=== PATIENT | male | born 1985 | race African-American/Black ===

== ENCOUNTER → 2017-06-07 | Day surgery (SDC) | payer BC ==
[~2017-06-07] MED LIST: NO MEDICATIONS
--- NOTE | ~2017-06-07 | OR ---
Unit #: [id number] #: [id number] Patient: BUBBA MCGINNIS [id number] [address] [address] [id number] O MR#: [id number] NAME: BUBBA MCGINNIS ROOM: Date of Procedure: 06/07/2017 Admission Date: 06/07/2017 Surgeon: Joel Min M.D. : 1985 Attending Physician: Joel Min M.D. Primary Care Physician: [facility] OPERATIVE REPORT PREOPERATIVE DIAGNOSIS Left inguinal hernia. POSTOPERATIVE DIAGNOSIS Indirect left inguinal hernia. PROCEDURE PERFORMED Laparoscopic preperitoneal inguinal hernia repair of left inguinal hernia. DRAGGER OUT Deon Perry M.D. ANESTHESIA General. ESTIMATED BLOOD LOSS Minimal. IV FLUIDS 800 crystalloid. COMPLICATIONS None. INDICATIONS FOR PROCEDURE The patient is a 31-year-old gentleman with a bulge in his left groin consistent with a hernia. DESCRIPTION OF PROCEDURE The patient was taken to the operating theater and placed in supine position. General anesthesia was induced. The abdomen was prepped and draped. Infraumbilical incision was then made. A small incision was made in the anterior sheath. I created a preperitoneal space with blunt dissection. A Veress needle was placed intra-abdominally. The abdomen was insufflated to 15 mmHg with CO2. Under direct vision, I placed a 5-mm port. The patient was placed in Trendelenburg and identified left-sided indirect inguinal hernia. No right-sided hernia. The pneumoperitoneum was released. Using the Auto[employer] balloon dissector system, I created the preperitoneal space in left side only. I placed two 5-mm ports in the midline. I dissected left groin, identifying the lateral space. The cord was skeletonized and the hernia sac reduced. I identified Jackson ligament. I placed a large 3DMax mesh into position. This was Unit #: [id number] #: [id number] Patient: BUBBA MCGINNIS anteriolized and covered the direct indirect spaces nicely. This was held in place as I released the pneumopreperitoneum. Care was taken to avoid the peritoneum sliding posterior to the mesh. Hemostasis was adequate. I removed the ports under direct vision and closed the fascia with 0 Vicryl and skin with 4-0 Vicryl. The patient tolerated the procedure well and sent to the recovery room in good condition. Dictated by... Marlyn Granado/celeste TD: 06/07/2017 10:30 JOB #: [id number] OPERATIVE REPORT Page 1 of 1 X Joel Min MD X PROCEDURE OPERATIVE NOTE
== END | disposition home or self-care (01) ==
LOC: CSUR 05:31
DX: K40.90 Unilateral inguinal hernia, without obstruction or gangrene, not specified as recurrent (principal)
CPT/HCPCS: C1781; J0330; J0690; J1644; J1885; J2250; J2405; J2710; J3010